=== PATIENT | female | born 2005 | race Caucasian/White ===

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

== ENCOUNTER 2023-02-02 13:31 | Emergency (ER) | payer BC, OTHER ==
[2023-02-02] MEDS ORDERED: Sodium Chloride 0.9% 2.5 ML Syringe FLUSH PRN (13:47)
[2023-02-02] MEDS ORDERED: Sodium Chloride 0.9% 10 ML Syringe FLUSH PRN (13:47)
[2023-02-02] MEDS ORDERED: Morphine 2 MG/ML SYRINGE IVPUSH ONE (14:11)
[2023-02-02] MEDS ORDERED: Naloxone 0.4 MG/ML SDV IVPUSH PRN (14:11)
[2023-02-02] MEDS ORDERED: Sodium Chloride 0.9% 1,000 ML IV ONE (14:11)
[2023-02-02] MEDS ORDERED: Ondansetron 4 MG/2 ML SDV IVPUSH ONE (14:11)
[2023-02-02 14:15] LABS: APPEARANCE,URINE CLEAR; BILIRUBIN,URINE NEGATIVE (NEGATIVE); COLOR,URINE YELLOW; GLUCOSE,URINE NEGATIVE (NEGATIVE); KETONES,URINE NEGATIVE (NEGATIVE); LEUKOCYTE ESTERASE,URINE NEGATIVE (NEGATIVE); NITRITE,URINE NEGATIVE (NEGATIVE); OCCULT BLOOD,URINE MODERATE (NEGATIVE); PH,URINE 7.5 (5.0-8.0); PROTEIN,URINE NEGATIVE (NEGATIVE); UROBILINOGEN,URINE 0.2 EU/dL (<2.0)
[2023-02-02 14:21] LABS: BASOPHILS PERCENT AUTO 0.5 % (0.0-1.5); EOSINOPHILS ABSOLUTE AUTO 0.1 K/uL (0.0-0.7); EOSINOPHILS PERCENT AUTO 1.8 % (0.0-7.0); HEMATOCRIT 39.4 % (36.0-46.0); HEMOGLOBIN 13.4 g/dL (12.0-16.0); LYMPHOCYTES ABSOLUTE AUTO 1.9 K/uL (0.6-2.4); LYMPHOCYTES PERCENT AUTO 30.7 % (16.0-40.0); MEAN CORPUSCULAR HEMOGLOBIN 30.7 pg (27.0-32.0); MEAN CORPUSCULAR VOLUME 90.4 fL (80.0-98.0); MONOCYTES ABSOLUTE AUTO 0.6 K/uL (0.0-0.8); MONOCYTES PERCENT AUTO 9.4 % (0.0-15.0); NEUTROPHILS ABSOLUTE AUTO 3.6 K/uL (1.4-5.7); NEUTROPHILS PERCENT AUTO 57.6 % (48.0-80.0); NRBC ABSOLUTE 0 K/uL; PLATELET COUNT,PLT 278 K/uL (150-400); RED BLOOD CELL COUNT 4.36 M/uL (4.30-5.90); WHITE BLOOD CELL COUNT,WBC 6.19 K/uL (4.0-11.0)
[2023-02-02 14:24] LABS: BACTERIA,URINE OCCASIONAL (NEGATIVE); EPITHELIAL CELLS,URINE OCCASIONAL (NONE-FEW); RBC,URINE 20-30 (0-2/HPF); SQUAMOUS EPITHELIAL CELLS,UR OCCASIONAL; WBC,URINE NONE SEEN (0-5/HPF)
[2023-02-02 14:25] LABS: AMORPHOUS SEDIMENT,URINE FEW (NEGATIVE)
[2023-02-02 14:44] LABS: A/G RATIO 1.2 (0.9-1.6); ALBUMIN 4.2 g/dL (3.4-5.0); BILIRUBIN TOTAL 0.4 mg/dL (0.2-1.0); CALCIUM 8.7 mg/dL (8.5-10.1); CARBON DIOXIDE,CO2 26.3 mmol/L (21.0-32.0); CREATININE 0.8 mg/dL (0.6-1.0); EST CRCL DRUG DOSING (CG) 97.67 mL/min; POTASSIUM,K 4.1 mmol/L (3.5-5.1); PROTEIN TOTAL,TP 7.8 g/dL (6.4-8.2)
[2023-02-02] MEDS ORDERED: Iopamidol 755 MG/ML 500 ML Multipack Bottle IVPUSH ONE (15:00)
== END 2023-02-02 17:25 | disposition left against medical advice (07) ==
LOC: MW.ED 13:31
DX: N12 Tubulo-interstitial nephritis, not specified as acute or chronic (principal)
CPT/HCPCS: 36415; 74177; 80053; 81001; 81025; 83690; 85025; 96361; 96374; 96375; 99284; J2270; J2405; J3490; J7030; Q9967